=== PATIENT | female | born 1930 | race Caucasian/White ===

== ENCOUNTER → 2017-01-13 | Outpatient (CLI) | payer MEDICARE ==
[~2017-01-13] MED LIST: ACETAMINOPHEN P1 TA2 PO; ACETAMINOPHEN325 MG PO; ASPIRIN PO; ASPIRIN81 M1 PO; ASPIRINEC PO; CALCIUM 500+D C1 TAB PO; CALTRATE 600+D PO; CENTRUM PO; CENTRUM SILVER PO; CENTRUM SILVER1 EAC2 PO; COMBIVENT U/D3 M1 INH; DARVOCET-N 1001 TAB PO; FIBERCON625 MG PO; FLORINEF ACETA0.1 MG PO; HYDROCODONE PO; LANOXIN PO; LANSOPRAZOLE30 M2 PO; LEVAQUIN250 MG PO; MIRALAX17 GM DOB; NEXIUM PO; OSTEOBIFLEX PO; PAIN & SLEEP 21 EACH PO; PREDNISONE PO; PREDNISONE1 MG PO; PREMARIN PO; ROBITUSSIN-DM118 M1 PO; SENNA PO; TYLENOL #3 PO; VITAMIN D 4001 UDTAB PO; VITAMIN D31000 UNI1 PO; VITAMIN D400 UNI2 PO; ZOLEDRONIC ACID
--- NOTE | ~2017-01-13 | MR18 ---
[facility] A Service of [facility] RADIOLOGY TEXT RESULTS PATIENT: JOSUÉ MARTINEZ LOCATION: [facility] : [birth year] UNIT #: [id number] AGE: [address]: Jorge Luis Choudhury MD SEX: F ORDER DR: [id number] [address] [address] [id number] O MR#: [id number] Acc #: [id number] NAME: JOSUÉ MARTINEZ : 1930 SEX: F STUDY DATE/TIME: 01/13/2017 10:04 UNIT: [facility] ROOM: STUDY DESCRIPTION: MR Brain Wo Contrast Attending Physician: Jorge Luis Choudhury M.D. Referring Physician: Jorge Luis Choudhury M.D. Ordering Physician: Jorge Luis Choudhury M.D. Primary Care Physician: Jorge Luis Choudhury M.D. MRI CENTER REPORT This report is preliminary unless electronic signature is present. EXAM Brain MRI without contrast. DATE OF STUDY 01/13/17. PROCEDURE Routine unenhanced brain MRI. COMPARISON None. CLINICAL HISTORY One-year history of memory loss. FINDINGS There is volume loss, but no MR evidence of acute ischemia or other restricted diffusion. There is no hydrocephalus or extraaxial fluid collection. Normal flow voids are seen in the cerebral vessels. Bone marrow signal is normal. The extracranial soft tissues are normal. There is volume loss and moderate nonspecific white matter change, both not unusual for age. IMPRESSION Volume loss and nonspecific white matter change not substantially greater than often seen in patients of this age, though certainly moderate in extent. However, there is no hemorrhage, mass, or acute ischemia, or other acute abnormality. Dictated by... Jeffry Almazan M.D. [facility] A Service of [facility] RADIOLOGY TEXT RESULTS PATIENT: JOSUÉ MARTINEZ LOCATION: [facility] : [birth year] UNIT #: [id number] AGE: [address]: Jorge Luis Choudhury MD SEX: F ORDER DR: THIS IS AN ELECTRONICALLY VERIFIED REPORT Jeffry Almazan M.D. at 01/15/2017 4:27 PM TEV/pc TD: 01/14/2017 09:49 JOB #: [id number] MRI CENTER REPORT Page 1 of 1 COPY
== END | disposition home or self-care (01) ==
LOC: CMRI 08:39
DX: R41.3 Other amnesia (principal); R93.0 Abnormal findings on diagnostic imaging of skull and head, not elsewhere classified
CPT/HCPCS: 70551